=== PATIENT | female | born 1950 | race African-American/Black ===

== ENCOUNTER 2017-01-08 15:48 | Emergency (ER) | payer BC ==
[~2017-01-08] VITALS: Ht 162.6 cm; Wt 96.6 kg
[~2017-01-08 15:48] MED LIST: BABY ASPIRIN81 M1 PO; FLONASE16 G1 BOTH NARES; NAPROSYN500 MG PO; PRILOSEC20 MG PO; TESSALON PERLE100 MG PO; ZESTRIL,PRINIVI20 MG PO
[2017-01-08 17:06] VITALS: BP 126/76
== END 2017-01-08 17:06 | disposition home or self-care (01) ==
LOC: EXP 15:48 → EME 15:48 → EXP 17:06
PROC: 0HBJXZZ Excision of Left Upper Leg Skin, External Approach (ICD-10-PCS; principal; 2017-01-08)
DX: D22.72 Melanocytic nevi of left lower limb, including hip (principal); I10 Essential (primary) hypertension; Z79.82 Long term (current) use of aspirin
CPT/HCPCS: 99281; 99283

== ENCOUNTER 2017-02-20 18:51 | Emergency (ER) | payer BC ==
[~2017-02-20] VITALS: Ht 162.6 cm; Wt 98.7 kg
[2017-02-20] MEDS ORDERED: ZESTORETIC 20-1 EAC1 PO (22:30)
[2017-02-20] MEDS ORDERED: ASPIR 8181 M1 PO (22:31)
[2017-02-21 00:38] VITALS: BP 117/76
== END 2017-02-21 00:38 | disposition home or self-care (01) ==
LOC: EME 18:51
PROC: 3E0234Z Introduction of Serum, Toxoid and Vaccine into Muscle, Percutaneous Approach (ICD-10-PCS; principal; 2017-02-20)
DX: T15.02XA Foreign body in cornea, left eye, initial encounter (principal); Z87.891 Personal history of nicotine dependence
CPT/HCPCS: 99281; 99283

== ENCOUNTER 2017-02-23 20:53 | Emergency (ER) | payer BC ==
[~2017-02-23] VITALS: Ht 162.6 cm; Wt 98.7 kg
[~2017-02-23 20:53] MED LIST changes: +ASPIR 8181 M1 PO; +ZESTORETIC 20-1 EAC1 PO
[2017-02-23 23:44] VITALS: BP 88/58
== END 2017-02-23 23:46 | disposition home or self-care (01) ==
LOC: EME 20:53
DX: H57.12 Ocular pain, left eye (principal); E78.5 Hyperlipidemia, unspecified; I10 Essential (primary) hypertension; Z79.82 Long term (current) use of aspirin
CPT/HCPCS: 99281; 99283

== ENCOUNTER 2017-07-14 18:27 | Emergency (ER) | payer BC ==
[~2017-07-14] VITALS: Ht 162.6 cm; Wt 99.9 kg
[2017-07-14 18:33] VITALS: BP 133/88
== END 2017-07-14 19:38 | disposition home or self-care (01) ==
LOC: EME 18:27
DX: Z77.098 Contact with and (suspected) exposure to other hazardous, chiefly nonmedicinal, chemicals (principal); E78.5 Hyperlipidemia, unspecified; Z88.2 Allergy status to sulfonamides; Z88.1 Allergy status to other antibiotic agents
CPT/HCPCS: 99281; 99284

== ENCOUNTER 2017-07-26 00:55 | Emergency (ER) | payer BC ==
[~2017-07-26] VITALS: Ht 162.6 cm; Wt 99.3 kg
[2017-07-26 01:53] LABS: APPEARANCE CLEAR ((CLEAR)); BILIRUBIN NEGATIVE; BLOOD MODERATE; COLOR STRAW ((YELLOW)); GLUCOSE (STRIP) NEGATIVE; KETONES NEGATIVE; LEUKOCYTES MODERATE; NITRITE NEGATIVE; PROTEIN (STRIP) NEGATIVE; SPECIFIC GRAVITY 1.006 (1.000-1.030); UROBILINOGEN 0.2 MG/DL (0.2-1.0)
[2017-07-26 02:34] LABS: BACTERIA RARE /HPF; EPITHELIAL CELLS RARE /HPF; MUCUS NONE SEEN /LPF; RED BLOOD CELLS 0-5 /HPF (0-5); UCUL ADDED? YES; WHITE BLOOD CELLS 20-30 /HPF (0-5)
[2017-07-26] MEDS ORDERED: MACROBID100 MG PO (02:57)
[2017-07-26] MEDS ORDERED: PYRIDIUM100 MG PO (03:02)
[2017-07-26 03:07] VITALS: BP 133/86
== END 2017-07-26 03:09 | disposition home or self-care (01) ==
LOC: EME 00:55
DX: N39.0 Urinary tract infection, site not specified (principal); I10 Essential (primary) hypertension; E78.5 Hyperlipidemia, unspecified; Z87.440 Personal history of urinary (tract) infections; Z88.2 Allergy status to sulfonamides; Z88.1 Allergy status to other antibiotic agents
CPT/HCPCS: 81003; 87077; 87086; 87186; 99281; 99284

== ENCOUNTER 2017-09-30 06:36 | Emergency (ER) | payer BC ==
[~2017-09-30] VITALS: Ht 162.6 cm; Wt 98.9 kg
[~2017-09-30 06:36] MED LIST changes: +MACROBID100 MG PO; +PYRIDIUM100 MG PO
[2017-09-30 07:29] LABS: APPEARANCE CLOUDY ((CLEAR)); BILIRUBIN NEGATIVE; BLOOD LARGE; COLOR YELLOW ((YELLOW)); GLUCOSE (STRIP) NEGATIVE; KETONES NEGATIVE; LEUKOCYTES LARGE; NITRITE NEGATIVE; PROTEIN (STRIP) 100; SPECIFIC GRAVITY 1.021 (1.000-1.030); UROBILINOGEN 0.2 MG/DL (0.2-1.0)
[2017-09-30 07:41] LABS: BACTERIA 1+ /HPF; EPITHELIAL CELLS 1+ /HPF; MUCUS NONE SEEN /LPF; RED BLOOD CELLS 20-30 /HPF (0-5); UCUL ADDED? YES; WHITE BLOOD CELLS TNTC /HPF (0-5)
[2017-09-30 08:29] LABS: BASOPHIL (%) 0.7 % (0-1); BASOPHIL COUNT 0.1 K/uL (0-0.1); EOSINOPHIL (%) 2.9 % (0-5); EOSINOPHIL COUNT 0.2 K/uL (0-0.3); HEMATOCRIT 38.6 % (36.0-46.0); HEMOGLOBIN 12.7 G/DL (11.9-15.5); IMMATURE GRANULOCYTE (%) 0.3 % (0.0-0.7); LYMPHOCYTE (%) 19.2 % (15-42); LYMPHOCYTE COUNT 1.3 K/uL (1.0-2.8); MCH 30.1 PG (29.0-34.0); MCHC 32.9 G/DL (30.0-36.0); MCV 91.5 FL (83-99); MONOCYTE (%) 8.1 % (3-12); MONOCYTE COUNT 0.6 K/uL (0-0.8); NEUTROPHIL (%) 68.8 % (45-76); NEUTROPHIL COUNT 4.7 K/uL (1.8-6.4); PLATELET COUNT 232 K/uL (156-360); RBC DIS.WIDTH-CV 14.6 % (11.8-14.6); RBC DIS.WIDTH-SD 49.1 % (39-53); RED BLOOD COUNT 4.22 M/uL (3.80-5.20); WHITE BLOOD COUNT 6.8 K/uL (4.1-10.2)
[2017-09-30 08:40] LABS: CHLORIDE 106 mEq/L (99-109); POTASSIUM 3.8 mEq/L (3.7-5.4); SODIUM 143 mEq/L (136-147)
[2017-09-30 08:42] LABS: GLUCOSE 94 mg/dL (70-99)
[2017-09-30 08:46] LABS: CREATININE 0.9 mg/dL (0.6-1.3); GFR ESTIMATE (CALCULATED) > 59 mL/min/; UREA NITROGEN (BUN) 18 mg/dL (9-23)
[2017-09-30] MEDS ORDERED: CIPRO500 MG PO (08:55)
[2017-09-30 09:15] VITALS: BP 136/82
== END 2017-09-30 09:16 | disposition home or self-care (01) ==
LOC: EME 06:36
PROVIDERS: Emergency Medicine
DX: N39.0 Urinary tract infection, site not specified (principal); I10 Essential (primary) hypertension; Z79.82 Long term (current) use of aspirin; Z88.2 Allergy status to sulfonamides
CPT/HCPCS: 80048; 81003; 85025; 87077; 87086; 87186; 99281; 99284

== ENCOUNTER 2018-02-05 20:41 | Emergency (ER) | payer BC ==
[~2018-02-05] VITALS: Ht 162.6 cm; Wt 94.1 kg
[~2018-02-05 20:41] MED LIST changes: +CIPRO500 MG PO
[2018-02-05 22:47] VITALS: BP 149/98
== END 2018-02-05 22:48 | disposition home or self-care (01) ==
LOC: EME 20:41
DX: H57.8 Other specified disorders of eye and adnexa (principal); Z77.098 Contact with and (suspected) exposure to other hazardous, chiefly nonmedicinal, chemicals; I10 Essential (primary) hypertension; E78.5 Hyperlipidemia, unspecified; Z79.82 Long term (current) use of aspirin; Z88.2 Allergy status to sulfonamides; Z88.1 Allergy status to other antibiotic agents
CPT/HCPCS: 99281; 99284